=== PATIENT | male | born 1940 | race Caucasian/White ===

== ENCOUNTER 2016-12-02 21:38 | Emergency (ER) | payer MEDICARE, OTHER ==
--- NOTE | ~2016-12-02 | CT4 ---
[facility] A Service of [facility] RADIOLOGY TEXT RESULTS PATIENT: RIGO SLOAN LOCATION: [facility] : 44 UNIT #: [id number] AGE: [address]: Tito Wadsworth MD SEX: M ORDER DR: [id number] [facility] [address] [place], [place] [address] [id number] E MR#: [id number] Acc #: [id number] NAME: RIGO SLOAN : 1940 SEX: M STUDY DATE/TIME: 12/03/2016 0:06 UNIT: [facility] ROOM: STUDY DESCRIPTION: CT Abd and Pelv Wo Cont Attending Physician: Tito Wadsworth M.D. Ordering Physician: Tito Wadsworth M.D. Primary Care Physician: Iveth Tucker A.P.R.N. MEDICAL IMAGING REPORT This report is preliminary unless electronic signature is present EXAM CT abdomen and pelvis INDICATIONS Left flank pain and abdominal pain for 1 day. Nausea and vomiting. COMPARISON Renal ultrasound 12/25/2008. TECHNIQUE CT of the abdomen and pelvis without contrast. Coronal and sagittal reconstructions were obtained. This CT exam was performed with one or more of the following radiation dose reduction techniques: Automatic exposure control, adjustment of mA and/or kV according to patient size, and iterative reconstruction. FINDINGS ABDOMEN: No urinary calculi. No hydronephrosis. There are a few small renal cysts within both kidneys. 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 This measures 0.9 cm. Noncontrast evaluation of the remaining solid abdominal organs and the gallbladder are within normal limits. The bowel is not dilated. There are left-sided colonic diverticula. The appendix is normal. The abdominal aorta is normal in caliber. PELVIS: The prostate is enlarged measuring 6 x 5.4 x 6.6 cm. The urinary bladder is distended measuring up to 16.5 cm in length. This extends up to the level of the umbilicus. No enlarged pelvic or inguinal lymph nodes. No acute osseous abnormalities. [facility] A Service of [facility] RADIOLOGY TEXT RESULTS PATIENT: RIGO SLOAN LOCATION: [facility] : 44 UNIT #: [id number] AGE: [address]: Tito Wadsworth MD SEX: M ORDER DR: IMPRESSION 1. Prostatic hypertrophy. Distension of the urinary bladder measuring up to 16.5 cm. This extends into the lower abdomen to the level of the umbilicus. Please correlate for any evidence of a bladder outlet obstruction. 2. No urinary calculi. No hydronephrosis. 3. Benign renal cysts. 4. Colonic diverticulosis. Dictated by... Andrés Gentile M.D. THIS IS AN ELECTRONICALLY VERIFIED REPORT Andrés Gentile M.D. at 12/03/2016 4:02 AM RPMendy/floyd TD: 12/03/2016 03:45 JOB #: [id number] MEDICAL IMAGING REPORT Page 1 of 1 COPY
[~2016-12-02 21:38] MED LIST: FLEXERIL PO; FLONASE16 GM; NEURONTIN PO; PROTONIX; PROTONIX PO; ZESTORETIC 10/11 TAB PO; ZESTORETIC 20/11 TAB; ZOCOR PO
[2016-12-02 23:42] LABS: URINE SOURCE CLEAN CATCH
[2016-12-02 23:46] LABS: URINE APPEARANCE CLEAR; URINE BILIRUBIN NEG (NEG); URINE BLOOD NEG (NEG); URINE COLOR YELLOW; URINE GLUCOSE NEG (NEG); URINE KETONE NEG (NEG); URINE LEUKOCYTE ESTERASE NEG (NEG); URINE NITRATE NEG (NEG); URINE PH 6.5 (5-8); URINE PROTEIN NEG (NEG); URINE SPECIFIC GRAVITY 1.017 (1.003-1.035); URINE UROBILINOGEN 0.2 MG/DL (NEG)
[2016-12-02 23:49] LABS: BASOPHIL% 0.2 % (0-2.5); DIFF IND NO; EOSINOPHIL# 0.1 X10e3 (0-0.7); EOSINOPHIL% 0.7 % (0.0-7.0); HEMATOCRIT 43.8 % (38.0-50.0); HEMOGLOBIN 14.9 gm/dL (13.0-16.0); LYMPHOCYTE# 1.4 X10e3 (1.0-3.5); LYMPHOCYTE% 14.6 % (17.0-45.0); MEAN CORPUSCULAR HEMOGLOBIN 29.2 PG (28-34); MEAN PLATELET VOLUME 9.6 FL (6.5-11.5); MONOCYTE# 0.6 X10e3 (0-1.0); NEUTROPHIL# 7.4 X10e3 (1.5-7.1); NEUTROPHIL% 78.5 % (40-75); PLATELET COUNT 213 X10e3 (140-420); RED CELL DISTRIBUTION WIDTH 14.1 % (11.0-15.5); WHITE BLOOD COUNT 9.4 X10e3 (4.0-10.5)
[2016-12-02 23:50] LABS: CULTURE INDICATED? NO
[2016-12-03 00:17] LABS: BUN/CREATININE RATIO 21.42; CALCIUM SERUM 9.5 mg/dL (8.4-10.2); CREATININE SERUM 0.7 mg/dL (0.6-1.4); POTASSIUM 3.5 mmol/L (3.5-5.1)
== END 2016-12-03 01:34 | disposition home or self-care (01) ==
LOC: CED 21:38
DX: R33.9 Retention of urine, unspecified (principal); R10.9 Unspecified abdominal pain; N40.0 Benign prostatic hyperplasia without lower urinary tract symptoms; K21.9 Gastro-esophageal reflux disease without esophagitis; I10 Essential (primary) hypertension; Z79.899 Other long term (current) drug therapy
CPT/HCPCS: 36415; 51702; 74176; 80048; 81003; 85025; 96374; 96375; 99284; J1885; J2405